=== PATIENT | male | born 1930 | race Caucasian/White ===

== ENCOUNTER 2017-07-28 18:49 | Inpatient (IN) ==
[2017-07-28 19:18] LABS: Hematocrit 35.9 VOL% (42.0-52.0); Hemoglobin 12.3 GM/DL (14.0-18.0); Red Blood Count 3.98 MC/CUMM (3.8-5.5); White Blood Count 17.4 T/CUMM (4-12)
[2017-07-28 19:19] LABS: Basophils % 0.1 % (0.0-0.8); Eosinophils % 0.1 % (0.00-10.9); Immature Granulocytes % 0.5 %; Immature Granulocytes Absolute 0.09 #; Lymphocytes # 0.5 10*3/uL (1.4-4.0); Lymphocytes % 3.1 % (21.2-54.2); Mean Corpuscular HGB Conc 34.3 GM/DL (32-36); Mean Corpuscular Hemoglobin 31 PG (27-34); Mean Corpuscular Volume 90.2 FL (87-102); Mean Platelet Volume 10.2 FL (9.6-12.0); Monocytes # 1.1 10*3/uL (0.11-0.8); Monocytes % 6.5 % (1.7-12.7); Neutrophils # 15.6 10*3/uL (1.4-7.4); Neutrophils % 89.7 % (38.7-73.9); Platelet Count 240 T/CUMM (130-400); Red Cell Distribution Width 13.4 % (9.3-17.3)
[2017-07-28 19:39] LABS: Calcium 8.7 MG/DL (8.5-10.1); Potassium 4.2 MMOL/L (3.5-5.1)
[2017-07-28 19:46] LABS: Lactic Acid 2.5 MMOL/L (0.4-2.0); Troponin I Only 0.051 NG/ML (0.00-0.045)
[2017-07-28 20:17] LABS: Band Neutrophils 2 % (0-10); Lymphocytes 1 % (20-55); Myelocytes 1 %; Segmented Neutrophils 95 % (50-85); Total Cells Counted 100
[2017-07-28 20:18] LABS: Platelet Estimate Normal
[2017-07-28] MEDS ORDERED: fentaNYL 100 MCG/2 ML VIAL IV STA (20:36)
[2017-07-28] MEDS ORDERED: fentaNYL 100 MCG/2 ML VIAL ONE (20:54)
[2017-07-28] MEDS ORDERED: SODIUM CHLORIDE 0.9% 500 ML IV ONE (23:56)
[2017-07-28] MEDS ORDERED: DIPHTHERIA/TETANUS ADULT VACCINE 0.5 ML VIAL IM ONE (23:56)
[2017-07-28] MEDS ORDERED: GLUCAGON 1 MG VIAL IM PRN (23:56)
[2017-07-28] MEDS ORDERED: ONDANSETRON 4 MG/2 ML VIAL IV PRN (23:56)
[2017-07-28] MEDS ORDERED: DEXTROSE 50% 25 GM/50 ML VIAL IV PRN (23:56)
[2017-07-29] MEDS ORDERED: DIPHTHERIA/TETANUS ADULT VACCINE 0.5 ML VIAL IM ONE (00:30)
[2017-07-29] MEDS: SODIUM CHLORIDE 0.9% 1,000 ML IV SCH ×2 (02:20→16:30)
[2017-07-29 03:09] LABS: Hematocrit 33.6 VOL% (42.0-52.0); Hemoglobin 11.2 GM/DL (14.0-18.0); Red Blood Count 3.69 MC/CUMM (3.8-5.5); White Blood Count 13.6 T/CUMM (4-12)
[2017-07-29 03:10] LABS: Basophils % 0.1 % (0.0-0.8); Eosinophils % 0.1 % (0.00-10.9); Immature Granulocytes % 0.5 %; Immature Granulocytes Absolute 0.07 #; Lymphocytes # 1.4 10*3/uL (1.4-4.0); Lymphocytes % 10.2 % (21.2-54.2); Mean Corpuscular HGB Conc 33.3 GM/DL (32-36); Mean Corpuscular Hemoglobin 30 PG (27-34); Mean Corpuscular Volume 91.1 FL (87-102); Mean Platelet Volume 10.9 FL (9.6-12.0); Monocytes # 1.5 10*3/uL (0.11-0.8); Monocytes % 10.8 % (1.7-12.7); Neutrophils # 10.6 10*3/uL (1.4-7.4); Neutrophils % 78.3 % (38.7-73.9); Platelet Count 230 T/CUMM (130-400); Red Cell Distribution Width 13.6 % (9.3-17.3)
[2017-07-29 03:23] LABS: INR 1.1; PT Patient Result 11.4 SECS; Partial Thromboplastin Time 22.5 SECS (0-40)
[2017-07-29 03:34] LABS: Lactic Acid 1.3 MMOL/L (0.4-2.0)
[2017-07-29 03:46] LABS: Calcium 8.4 MG/DL (8.5-10.1); Magnesium 2.4 MG/DL (1.8-2.4); Osmolality,Calculated 276.5 MOS/KG (273-304); Potassium 4.4 MMOL/L (3.5-5.1); Risk Ratio 1.92; VLDL CHOLESTEROL 8.4 MG/DL
[2017-07-29 06:27] LABS: Burr Cells Slight; Giant Platelets Few; Hypochromasia 1+; Ovalocytes Slight; Platelet Estimate Adequate
[2017-07-29] MEDS: INSULIN LISPRO 100 UNIT/ML SUBCUT SCH ×4 (09:32→21:33)
[2017-07-29] MEDS: fentaNYL 100 MCG/2 ML VIAL IV PRN ×4 (09:45→20:50)
[2017-07-29] MEDS ORDERED: GLUCAGON 1 MG VIAL IM PRN (15:19)
[2017-07-29] MEDS ORDERED: DEXTROSE 50% 25 GM/50 ML VIAL IV PRN (15:19)
[2017-07-29] MEDS: CARVEDILOL 3.125 MG TABLET PO SCH (16:29)
[2017-07-29 17:00] LABS: CKMB % 0.5 %
[2017-07-29 17:03] LABS: Troponin I Only 0.074 NG/ML (0.00-0.045)
[2017-07-29 22:56] LABS: CKMB % 0.4 %
[2017-07-29 22:57] LABS: Troponin I Only 0.062 NG/ML (0.00-0.045)
[2017-07-30] MEDS: CARVEDILOL 3.125 MG TABLET PO SCH ×5 (00:15→22:01)
[2017-07-30] MEDS: fentaNYL 100 MCG/2 ML VIAL IV PRN (01:50)
[2017-07-30] MEDS ORDERED: HALOPERIDOL 5 MG/ML AMP IV ONE ×2 (02:54→07:15)
[2017-07-30] MEDS: SODIUM CHLORIDE 0.9% 1,000 ML IV SCH (04:40)
[2017-07-30 07:05] LABS: CKMB % 0.3 %
[2017-07-30 07:29] LABS: Troponin I Only 0.055 NG/ML (0.00-0.045)
[2017-07-30] MEDS ORDERED: diphenhydrAMINE 50 MG/1 ML VIAL ONE (10:17)
[2017-07-30] MEDS ORDERED: diphenhydrAMINE 50 MG/1 ML VIAL IV ONE (10:32)
[2017-07-30] MEDS: INSULIN LISPRO 100 UNIT/ML SUBCUT SCH ×4 (10:40→21:52)
[2017-07-30 10:48] LABS: CKMB % 0.2 %
[2017-07-30 11:06] LABS: Troponin I Only 0.052 NG/ML (0.00-0.045)
[2017-07-30] MEDS ORDERED: ceFAZolin 1,000 MG VIAL ONE ×2 (12:20→12:36)
[2017-07-30] MEDS ORDERED: ceFAZolin 2,000 MG in PREMIX 1 EACH IV ONE (13:48)
[2017-07-30] MEDS ORDERED: PROPOFOL 200 MG/20 ML VIAL IV ONE (21:11)
[2017-07-30] MEDS ORDERED: ePHEDrine 50 MG/ML AMP ONE (21:12)
[2017-07-30] MEDS ORDERED: MIDAZOLAM 2 MG/2 ML VIAL ONE (21:12)
[2017-07-30] MEDS ORDERED: fentaNYL 100 MCG/2 ML VIAL ONE (21:12)
[2017-07-30] MEDS ORDERED: ONDANSETRON 4 MG/2 ML VIAL ONE (21:12)
[2017-07-30] MEDS ORDERED: PHENYLEPHRINE DRIP 20 MG/250 ML PREMIX IV ONE (21:12)
[2017-07-30] MEDS ORDERED: ETOMIDATE 20 MG/10 ML VIAL IV ONE (21:12)
[2017-07-30] MEDS ORDERED: LACTATED RINGERS 1,000 ML IV ONE (21:13)
[2017-07-30] MEDS ORDERED: SEVOFLURANE 1 UNIT/15 MINUTE INH ONE (21:15)
[2017-07-31] MEDS: KETOROLAC 15 MG/1 ML VIAL IV PRN ×2 (00:13→09:53)
[2017-07-31] MEDS: CARVEDILOL 3.125 MG TABLET PO SCH ×4 (04:59→22:13)
[2017-07-31 05:24] LABS: Basophils % 0.1 % (0.0-0.8); Eosinophils # 0.1 10*3/uL (0.0-0.87); Eosinophils % 0.4 % (0.00-10.9); Hematocrit 28.3 VOL% (42.0-52.0); Hemoglobin 9.7 GM/DL (14.0-18.0); Immature Granulocytes % 0.5 %; Immature Granulocytes Absolute 0.06 #; Lymphocytes # 1.2 10*3/uL (1.4-4.0); Lymphocytes % 9.6 % (21.2-54.2); Mean Corpuscular HGB Conc 34.3 GM/DL (32-36); Mean Corpuscular Hemoglobin 32 PG (27-34); Mean Corpuscular Volume 91.9 FL (87-102); Mean Platelet Volume 11.3 FL (9.6-12.0); Monocytes # 1.7 10*3/uL (0.11-0.8); Monocytes % 14.3 % (1.7-12.7); Neutrophils # 9.1 10*3/uL (1.4-7.4); Neutrophils % 75.1 % (38.7-73.9); Platelet Count 181 T/CUMM (130-400); Red Blood Count 3.08 MC/CUMM (3.8-5.5); Red Cell Distribution Width 13.5 % (9.3-17.3); White Blood Count 12.2 T/CUMM (4-12)
[2017-07-31 06:02] LABS: Calcium 8.1 MG/DL (8.5-10.1); Osmolality,Calculated 273.8 MOS/KG (273-304)
[2017-07-31] MEDS: INSULIN LISPRO 100 UNIT/ML SUBCUT SCH ×4 (07:32→21:26)
[2017-07-31 11:35] LABS: Apearance,Urine Slightly Hazy (Clear); Bacteria,Urine Occasional /HPF (Few); Bilirubin,Urine Negative (Negative); Blood, Urine Negative (Negative); Glucose,Urine (UA) 50 mg/dL (Negative); Hyaline Casts,Urine 1 /LPF (0-3); Ketones,Urine 20 mg/dL (Negative); Mucus,Urine Few /LPF (Occasional); Nitrite,Urine Negative (Negative); Protein,Urine 30 MG/DL; RBC,Urine 1 /HPF (0-4); Urine Color Amber (Yellow); Urine Specific Gravity 1.028 (1.001-1.035); WBC,Urine 6 /HPF (0-6)
[2017-07-31] MEDS ORDERED: KETOROLAC 10 MG TABLET PO PRN (15:49)
[2017-08-01] MEDS: CARVEDILOL 3.125 MG TABLET PO SCH ×2 (05:59→09:51)
[2017-08-01] MEDS: INSULIN LISPRO 100 UNIT/ML SUBCUT SCH ×2 (07:44→11:08)
[2017-08-01] MEDS ORDERED: MAGNESIUM HYDROXIDE SUSP 30 ML UDCUP PO PRN (07:46)
[2017-08-01] MEDS ORDERED: BISACODYL 10 MG SUPP RECTAL PRN (07:47)
[2017-08-01 11:20] VITALS: BP 108/64
== END 2017-08-01 15:46 | DRG 493 ==
LOC: EDUNIT# → EDBD → N.ED 18:49 → N.EDINP 22:08 → N.TELES 22:44 → N.3E 07-30 16:20
PROVIDERS: ADMIT Internal Medicine; ATTEND Internal Medicine

== ENCOUNTER 2018-03-05 10:39 | Observation (INO) ==
[2018-03-05 11:21] LABS: Basophils % 0.3 % (0.0-0.8); Eosinophils # 0.2 10*3/uL (0.0-0.87); Eosinophils % 2.9 % (0.00-10.9); Hematocrit 31.5 VOL% (42.0-52.0); Hemoglobin 10.2 GM/DL (14.0-18.0); Immature Granulocytes % 0.3 %; Immature Granulocytes Absolute 0.02 #; Lymphocytes # 1.4 10*3/uL (1.4-4.0); Lymphocytes % 17.9 % (21.2-54.2); Mean Corpuscular HGB Conc 32.4 GM/DL (32-36); Mean Corpuscular Hemoglobin 26 PG (27-34); Mean Corpuscular Volume 80.6 FL (87-102); Mean Platelet Volume 9.9 FL (9.6-12.0); Monocytes # 0.7 10*3/uL (0.11-0.8); Monocytes % 9.6 % (1.7-12.7); Neutrophils # 5.3 10*3/uL (1.4-7.4); Platelet Count 296 T/CUMM (130-400); Red Blood Count 3.91 MC/CUMM (3.8-5.5); Red Cell Distribution Width 15.1 % (9.3-17.3); White Blood Count 7.7 T/CUMM (4-12)
[2018-03-05 11:33] LABS: PT Patient Result 10.6 SECS; Partial Thromboplastin Time 25.4 SECS (0-40)
[2018-03-05 11:59] LABS: Alanine Aminotransferase 22 U/L (16-61); Albumin 3.3 G/DL (3.4-5.0); Alkaline Phosphatase 119 U/L (45-117); Aspartate Amino Transferase 20 U/L (0-37); Bilirubin,Total < 0.39 MG/DL (0.2-1.0); Blood Urea Nitrogen 17 MG/DL (7-18); Calcium 8.9 MG/DL (8.5-10.1); Glucose 98 MG/DL (74-106); Osmolality,Calculated 276.7 MOS/KG (273-304); Potassium 4.1 MMOL/L (3.5-5.1); Sodium 138 MMOL/L (136-145); Total Protein 7.5 G/DL (6.4-8.3); Troponin I Only < 0.015 NG/ML (0.00-0.045)
[2018-03-05] MEDS ORDERED: SODIUM CHLORIDE 0.9% 1,000 ML IV SCH (15:30)
[2018-03-05] MEDS ORDERED: DOCUSATE SODIUM 100 MG CAPSULE PO PRN (15:30)
[2018-03-05] MEDS ORDERED: PANTOPRAZOLE 40 MG TABLET PO SCH (16:00)
[2018-03-05 16:16] LABS: Amorphous Crystals,Urine Occasional /HPF (Few); Apearance,Urine Slightly Hazy (Clear); Bacteria,Urine Moderate /HPF (Few); Bilirubin,Urine Negative (Negative); Blood, Urine Negative (Negative); Glucose,Urine (UA) Negative (Negative); Ketones,Urine Negative (Negative); Mucus,Urine Occasional /LPF (Occasional); Nitrite,Urine Negative (Negative); Protein,Urine Negative; RBC,Urine 11 /HPF (0-4); Squamous Epithelial Cell,Urine Occasional /HPF (0-10); Urine Color Straw (Yellow); Urine Specific Gravity 1.006 (1.001-1.035); Urine Urobilinogen < 2.0 EU/DL (0.2-1.0); WBC,Urine 47 /HPF (0-6)
[2018-03-05 16:37] LABS: % Iron Saturation 5.6 % (18-50); Ferritin 14.3 ng/ml (26-388)
[2018-03-05 16:56] LABS: Troponin I Only < 0.015 NG/ML (0.00-0.045)
[2018-03-05] MEDS ORDERED: cefTRIAXone 1,000 MG in SYRINGE 1 EACH IV SCH (18:00)
[2018-03-05] MEDS: PANTOPRAZOLE 40 MG TABLET PO SCH (18:26)
[2018-03-05] MEDS ORDERED: QUEtiapine 25 MG TABLET PO SCH (21:00)
[2018-03-05] MEDS ORDERED: MONTELUKAST 10 MG TABLET PO SCH (21:00)
[2018-03-05] MEDS ORDERED: ZALEPLON 5 MG CAPSULE PO SCH (21:00)
[2018-03-05] MEDS ORDERED: ATORVASTATIN 10 MG TABLET PO SCH (21:00)
[2018-03-05] MEDS ORDERED: CETIRIZINE 10 MG TABLET PO SCH (21:00)
[2018-03-05] MEDS ORDERED: GABAPENTIN 100 MG CAPSULE PO SCH (21:00)
[2018-03-05] MEDS: NAPROXEN 250 MG TABLET PO SCH (22:29)
[2018-03-05] MEDS: MEMANTINE 10 MG TABLET PO SCH (22:30)
[2018-03-06 05:49] LABS: Basophils % 0.2 % (0.0-0.8); Eosinophils # 0.3 10*3/uL (0.0-0.87); Eosinophils % 3.1 % (0.00-10.9); Hemoglobin 9.1 GM/DL (14.0-18.0); Immature Granulocytes % 0.4 %; Immature Granulocytes Absolute 0.03 #; Lymphocytes # 1.6 10*3/uL (1.4-4.0); Lymphocytes % 18.6 % (21.2-54.2); Mean Corpuscular HGB Conc 31.4 GM/DL (32-36); Mean Corpuscular Hemoglobin 26 PG (27-34); Mean Corpuscular Volume 83.8 FL (87-102); Monocytes # 0.9 10*3/uL (0.11-0.8); Monocytes % 10.9 % (1.7-12.7); Neutrophils # 5.6 10*3/uL (1.4-7.4); Neutrophils % 66.8 % (38.7-73.9); Platelet Count 269 T/CUMM (130-400); Red Blood Count 3.46 MC/CUMM (3.8-5.5); Red Cell Distribution Width 15.1 % (9.3-17.3); White Blood Count 8.3 T/CUMM (4-12)
[2018-03-06 06:28] LABS: Albumin 2.9 G/DL (3.4-5.0); Bilirubin,Total 0.4 MG/DL (0.2-1.0); Calcium 8.5 MG/DL (8.5-10.1); Osmolality,Calculated 279.4 MOS/KG (273-304); Potassium 4.1 MMOL/L (3.5-5.1); Total Protein 6.7 G/DL (6.4-8.3)
[2018-03-06] MEDS ORDERED: ASCORBIC ACID 500 MG TABLET PO SCH (09:00)
[2018-03-06] MEDS ORDERED: CHOLECALCIFEROL 1,000 UNIT TABLET PO SCH (09:00)
[2018-03-06] MEDS ORDERED: MULTIVITAMIN (CENTRUM) TABLET PO SCH (09:00)
[2018-03-06] MEDS ORDERED: CLOPIDOGREL 75 MG TABLET PO SCH (09:00)
[2018-03-06] MEDS ORDERED: SERTRALINE 50 MG TABLET PO SCH (09:00)
[2018-03-06] MEDS: NAPROXEN 250 MG TABLET PO SCH (09:50)
[2018-03-06] MEDS: PANTOPRAZOLE 40 MG TABLET PO SCH (09:50)
[2018-03-06] MEDS: MEMANTINE 10 MG TABLET PO SCH (09:51)
[2018-03-06 11:51] VITALS: BP 124/62
[2018-03-06] MEDS ORDERED: ALBUTEROL/IPRATROPIUM 3 ML NEB RESP TX SCH (13:00)
== END 2018-03-06 14:30 | disposition home or self-care (01) ==
LOC: N.ED 10:39 → N.EDINP 10:39 → N.2E 16:27
PROVIDERS: ADMIT Internal Medicine; ATTEND Internal Medicine

== ENCOUNTER 2019-10-27 13:35 | Inpatient (IN) ==
[2019-10-27 14:58] LABS: Basophils % 0.1 % (0.0-0.8); Eosinophils % 0.2 % (0.00-10.9); Hematocrit 43.5 VOL% (42.0-52.0); Hemoglobin 14.2 GM/DL (14.0-18.0); Immature Granulocytes % 0.5 %; Immature Granulocytes Absolute 0.07 #; Lymphocytes # 0.9 10*3/uL (1.4-4.0); Lymphocytes % 5.7 % (21.2-54.2); Mean Corpuscular HGB Conc 32.6 GM/DL (32-36); Mean Corpuscular Volume 93.5 FL (87-102); Mean Platelet Volume 11.2 FL (9.6-12.0); Monocytes % 6.8 % (1.7-12.7); Neutrophils % 86.7 % (38.7-73.9); Platelet Count 173 T/CUMM (130-400); Red Blood Count 4.65 MC/CUMM (3.8-5.5); Red Cell Distribution Width 15.5 % (9.3-17.3); White Blood Count 14.8 T/CUMM (4-12)
[2019-10-27 15:18] LABS: Osmolality,Calculated 288.5 MOS/KG (273-304)
[2019-10-27] MEDS ORDERED: ALBUTEROL/IPRATROPIUM 3 ML NEB RESP TX PRN (15:56)
[2019-10-27] MEDS ORDERED: ONDANSETRON 4 MG/2 ML VIAL IV PRN (15:56)
[2019-10-27] MEDS ORDERED: POLYVINYL ALCOHOL 1.4% OPH SOLN 15 ML BOTTLE BOTH EYES PRN (15:59)
[2019-10-27] MEDS: traMADol 50 MG TABLET PO PRN (17:25)
[2019-10-27 19:25] LABS: Hematocrit 42.4 VOL% (42.0-52.0); Hemoglobin 13.7 GM/DL (14.0-18.0)
[2019-10-27 19:53] LABS: Apearance,Urine Slightly Hazy (Clear); Bacteria,Urine Many /HPF (Few); Bilirubin,Urine Negative (Negative); Blood, Urine Moderate mg/dL (Negative); Glucose,Urine (UA) Negative (Negative); Hyaline Casts,Urine 33 /LPF (0-3); Ketones,Urine 5 mg/dL (Negative); Mucus,Urine Few /LPF (Occasional); Nitrite,Urine Negative (Negative); Protein,Urine 30 MG/DL; RBC,Urine 8 /HPF (0-4); Squamous Epithelial Cell,Urine Occasional /HPF (0-10); Urine Color Amber (Yellow); WBC,Urine 44 /HPF (0-6)
[2019-10-27] MEDS: MEMANTINE 10 MG TABLET PO SCH (20:44)
[2019-10-27] MEDS: ATORVASTATIN 10 MG TABLET PO SCH (20:44)
[2019-10-27] MEDS: ACETAMINOPHEN 325 MG TABLET PO PRN (20:45)
[2019-10-28] MEDS: traMADol 50 MG TABLET PO PRN ×2 (01:43→12:15)
[2019-10-28 03:46] LABS: Basophils % 0.2 % (0.0-0.8); Eosinophils # 0.3 10*3/uL (0.0-0.87); Eosinophils % 1.8 % (0.00-10.9); Hematocrit 40.7 VOL% (42.0-52.0); Hemoglobin 13.2 GM/DL (14.0-18.0); Immature Granulocytes % 0.5 %; Immature Granulocytes Absolute 0.08 #; Lymphocytes % 6.7 % (21.2-54.2); Mean Corpuscular HGB Conc 32.4 GM/DL (32-36); Mean Corpuscular Volume 93.1 FL (87-102); Mean Platelet Volume 11.3 FL (9.6-12.0); Neutrophils % 79.8 % (38.7-73.9); Platelet Count 146 T/CUMM (130-400); Red Blood Count 4.37 MC/CUMM (3.8-5.5); Red Cell Distribution Width 15.6 % (9.3-17.3); White Blood Count 15.4 T/CUMM (4-12)
[2019-10-28 04:31] LABS: Osmolality,Calculated 289.4 MOS/KG (273-304); Risk Ratio 3.1; Thyroid Stimulating Hormone 1.27 uIU/ml (0.358-3.74); VLDL CHOLESTEROL 23.6 MG/DL
[2019-10-28] MEDS: ACETAMINOPHEN 325 MG TABLET PO PRN (06:33)
[2019-10-28] MEDS ORDERED: ASPIRIN EC 81 MG TABLET PO SCH (12:00)
[2019-10-28] MEDS: LACTATED RINGERS 1,000 ML IV SCH ×2 (12:40→18:07)
[2019-10-28] MEDS ORDERED: DEXTROSE 50% 25 GM/50 ML VIAL IV PRN (15:10)
[2019-10-28] MEDS ORDERED: GLUCAGON 1 MG VIAL IM PRN (15:10)
[2019-10-28] MEDS: cefTRIAXone 1,000 MG in SYRINGE 1 EACH IV SCH (16:20)
[2019-10-28] MEDS: MULTIVITAMIN (CENTRUM) TABLET PO SCH (17:59)
[2019-10-28] MEDS: FERROUS SULFATE 325 MG TABLET PO SCH (17:59)
[2019-10-28] MEDS: PANTOPRAZOLE 40 MG TABLET PO SCH (18:00)
[2019-10-28] MEDS: ASCORBIC ACID 500 MG TABLET PO SCH (18:00)
[2019-10-28] MEDS: MEMANTINE 10 MG TABLET PO SCH ×2 (18:00→21:09)
[2019-10-28] MEDS: CYANOCOBALAMIN 500 MCG TABLET PO SCH (18:00)
[2019-10-28] MEDS: SERTRALINE 50 MG TABLET PO SCH (18:00)
[2019-10-28] MEDS: CRANBERRY PLUS VITAMIN C PO SCH (18:01)
[2019-10-28] MEDS: INSULIN REGULAR 100 UNIT/ML SUBCUT SCH ×2 (18:02→21:09)
[2019-10-28] MEDS: ATORVASTATIN 10 MG TABLET PO SCH (21:09)
[2019-10-29] MEDS: traMADol 50 MG TABLET PO PRN ×2 (04:25→19:10)
[2019-10-29] MEDS: LACTATED RINGERS 1,000 ML IV SCH ×3 (04:35→18:36)
[2019-10-29 06:31] LABS: Basophils % 0.1 % (0.0-0.8); Eosinophils # 0.2 10*3/uL (0.0-0.87); Eosinophils % 1.1 % (0.00-10.9); Hematocrit 37.8 VOL% (42.0-52.0); Hemoglobin 12.3 GM/DL (14.0-18.0); Immature Granulocytes % 0.6 %; Immature Granulocytes Absolute 0.09 #; Lymphocytes # 1.5 10*3/uL (1.4-4.0); Lymphocytes % 10.5 % (21.2-54.2); Mean Corpuscular HGB Conc 32.5 GM/DL (32-36); Mean Corpuscular Volume 95.2 FL (87-102); Mean Platelet Volume 11.8 FL (9.6-12.0); Monocytes % 10.6 % (1.7-12.7); Neutrophils % 77.1 % (38.7-73.9); Platelet Count 137 T/CUMM (130-400); Red Blood Count 3.97 MC/CUMM (3.8-5.5); Red Cell Distribution Width 16.3 % (9.3-17.3)
[2019-10-29 06:51] LABS: Calcium 9.3 MG/DL (8.5-10.1); Osmolality,Calculated 294.4 MOS/KG (273-304)
[2019-10-29] MEDS: MULTIVITAMIN (CENTRUM) TABLET PO SCH (09:10)
[2019-10-29] MEDS: FERROUS SULFATE 325 MG TABLET PO SCH (09:10)
[2019-10-29] MEDS: CYANOCOBALAMIN 500 MCG TABLET PO SCH (09:11)
[2019-10-29] MEDS: PANTOPRAZOLE 40 MG TABLET PO SCH (09:11)
[2019-10-29] MEDS: MEMANTINE 10 MG TABLET PO SCH ×2 (09:11→20:36)
[2019-10-29] MEDS: ASCORBIC ACID 500 MG TABLET PO SCH (09:12)
[2019-10-29] MEDS: SERTRALINE 50 MG TABLET PO SCH (09:12)
[2019-10-29] MEDS: CRANBERRY PLUS VITAMIN C PO SCH (09:28)
[2019-10-29] MEDS: INSULIN REGULAR 100 UNIT/ML SUBCUT SCH ×4 (09:36→20:35)
[2019-10-29] MEDS: ACETAMINOPHEN 325 MG TABLET PO PRN (11:00)
[2019-10-29] MEDS: cefTRIAXone 1,000 MG in SYRINGE 1 EACH IV SCH (16:30)
[2019-10-29] MEDS: ATORVASTATIN 10 MG TABLET PO SCH (20:36)
[2019-10-30] MEDS: ACETAMINOPHEN 325 MG TABLET PO PRN (00:57)
[2019-10-30] MEDS: traMADol 50 MG TABLET PO PRN ×2 (04:54→21:12)
[2019-10-30 04:59] LABS: Basophils % 0.2 % (0.0-0.8); Eosinophils # 0.2 10*3/uL (0.0-0.87); Eosinophils % 2.1 % (0.00-10.9); Immature Granulocytes % 0.7 %; Immature Granulocytes Absolute 0.08 #; Lymphocytes # 1.2 10*3/uL (1.4-4.0); Lymphocytes % 10.6 % (21.2-54.2); Mean Corpuscular HGB Conc 32.4 GM/DL (32-36); Mean Corpuscular Volume 96.3 FL (87-102); Mean Platelet Volume 12.3 FL (9.6-12.0); Monocytes % 10.7 % (1.7-12.7); Neutrophils % 75.7 % (38.7-73.9); Platelet Count 119 T/CUMM (130-400); Red Blood Count 3.53 MC/CUMM (3.8-5.5); Red Cell Distribution Width 16.5 % (9.3-17.3); White Blood Count 11.6 T/CUMM (4-12)
[2019-10-30 05:22] LABS: Calcium 9.1 MG/DL (8.5-10.1); Osmolality,Calculated 299.7 MOS/KG (273-304)
[2019-10-30] MEDS: INSULIN REGULAR 100 UNIT/ML SUBCUT SCH ×4 (10:11→21:13)
[2019-10-30] MEDS: MEMANTINE 10 MG TABLET PO SCH ×2 (10:12→21:13)
[2019-10-30] MEDS: FERROUS SULFATE 325 MG TABLET PO SCH (10:12)
[2019-10-30] MEDS: CRANBERRY PLUS VITAMIN C PO SCH (10:12)
[2019-10-30] MEDS: MULTIVITAMIN (CENTRUM) TABLET PO SCH (10:12)
[2019-10-30] MEDS: CYANOCOBALAMIN 500 MCG TABLET PO SCH (10:13)
[2019-10-30] MEDS: SERTRALINE 50 MG TABLET PO SCH (10:13)
[2019-10-30] MEDS: PANTOPRAZOLE 40 MG TABLET PO SCH (10:13)
[2019-10-30] MEDS: ASCORBIC ACID 500 MG TABLET PO SCH (10:13)
[2019-10-30] MEDS: LACTATED RINGERS 1,000 ML IV SCH (10:14)
[2019-10-30] MEDS: cefTRIAXone 1,000 MG in SYRINGE 1 EACH IV SCH (14:02)
[2019-10-30] MEDS ORDERED: ceFAZolin 1,000 MG VIAL ONE ×2 (15:52→15:54)
[2019-10-30] MEDS ORDERED: VANCOMYCIN 1,000 MG VIAL ONE (15:52)
[2019-10-30] MEDS ORDERED: TRANEXAMIC ACID 1,000 MG/10 ML VIAL ONE (15:52)
[2019-10-30] MEDS ORDERED: propofoL 200 MG/20 ML VIAL IV ONE (17:20)
[2019-10-30] MEDS ORDERED: ETOMIDATE 40 MG/20 ML VIAL IV ONE (17:20)
[2019-10-30] MEDS ORDERED: LIDOCAINE 2% 5 ML VIAL ONE (17:20)
[2019-10-30] MEDS ORDERED: SEVOFLURANE 1 UNIT/15 MINUTE INH ONE (17:20)
[2019-10-30] MEDS ORDERED: ROCURONIUM 100 MG/10 ML VIAL IV ONE (17:21)
[2019-10-30] MEDS ORDERED: DEXAMETHASONE 4 MG/1 ML VIAL ONE (17:22)
[2019-10-30] MEDS ORDERED: ONDANSETRON 4 MG/2 ML VIAL ONE (17:22)
[2019-10-30] MEDS ORDERED: ePHEDrine 50 MG/ML AMP ONE (17:22)
[2019-10-30] MEDS ORDERED: PHENYLEPHRINE DRIP 20 MG/250 ML PREMIX IV ONE (17:22)
[2019-10-30] MEDS ORDERED: GLYCOPYRROLATE 0.4 MG/2 ML VIAL ONE (17:22)
[2019-10-30] MEDS ORDERED: PHENYLEPHRINE 1 MG/10 ML SYRINGE IV ONE (17:23)
[2019-10-30] MEDS ORDERED: SODIUM CHLORIDE 0.9% 250 ML IV ONE (17:23)
[2019-10-30] MEDS ORDERED: SODIUM CHLORIDE 0.9% 500 ML IV ONE (17:23)
[2019-10-30] MEDS ORDERED: NEOSTIGMINE 10 MG/10 ML VIAL ONE (17:23)
[2019-10-30] MEDS ORDERED: fentaNYL 100 MCG/2 ML VIAL ONE (17:26)
[2019-10-30] MEDS: ATORVASTATIN 10 MG TABLET PO SCH (21:13)
[2019-10-31] MEDS: ACETAMINOPHEN 325 MG TABLET PO PRN (02:48)
[2019-10-31 05:53] LABS: Basophils % 0.1 % (0.0-0.8); Hematocrit 33.7 VOL% (42.0-52.0); Hemoglobin 10.6 GM/DL (14.0-18.0); Immature Granulocytes % 0.7 %; Immature Granulocytes Absolute 0.08 #; Lymphocytes # 0.5 10*3/uL (1.4-4.0); Lymphocytes % 4.4 % (21.2-54.2); Mean Corpuscular HGB Conc 31.5 GM/DL (32-36); Mean Corpuscular Volume 99.4 FL (87-102); Mean Platelet Volume 12.2 FL (9.6-12.0); Monocytes % 9.6 % (1.7-12.7); Neutrophils % 85.2 % (38.7-73.9); Platelet Count 131 T/CUMM (130-400); Red Blood Count 3.39 MC/CUMM (3.8-5.5); Red Cell Distribution Width 15.9 % (9.3-17.3)
[2019-10-31] MEDS: traMADol 50 MG TABLET PO PRN ×2 (06:14→19:33)
[2019-10-31 06:17] LABS: Hypochromasia 1+; Lymphocytes 2 % (20-55); Ovalocytes Slight; Platelet Estimate Normal; Segmented Neutrophils 86 % (50-85); Total Cells Counted 100
[2019-10-31 06:22] LABS: Osmolality,Calculated 301.4 MOS/KG (273-304)
[2019-10-31] MEDS: INSULIN REGULAR 100 UNIT/ML SUBCUT SCH ×4 (08:41→21:37)
[2019-10-31] MEDS: SERTRALINE 50 MG TABLET PO SCH (08:42)
[2019-10-31] MEDS: PANTOPRAZOLE 40 MG TABLET PO SCH (08:43)
[2019-10-31] MEDS: CYANOCOBALAMIN 500 MCG TABLET PO SCH (08:43)
[2019-10-31] MEDS: MEMANTINE 10 MG TABLET PO SCH ×2 (08:43→21:37)
[2019-10-31] MEDS: FERROUS SULFATE 325 MG TABLET PO SCH (08:43)
[2019-10-31] MEDS: ASCORBIC ACID 500 MG TABLET PO SCH (08:43)
[2019-10-31] MEDS: MULTIVITAMIN (CENTRUM) TABLET PO SCH (08:43)
[2019-10-31] MEDS: CRANBERRY PLUS VITAMIN C PO SCH (08:44)
[2019-10-31] MEDS: DEXTROSE 5% NACL 0.45% 1,000 ML IV SCH ×2 (08:52→22:15)
[2019-10-31] MEDS: cefTRIAXone 1,000 MG in SYRINGE 1 EACH IV SCH (15:37)
[2019-10-31] MEDS: ATORVASTATIN 10 MG TABLET PO SCH (21:36)
[2019-11-01] MEDS: INSULIN REGULAR 100 UNIT/ML SUBCUT SCH ×4 (07:08→21:06)
[2019-11-01] MEDS: FERROUS SULFATE 325 MG TABLET PO SCH (09:02)
[2019-11-01] MEDS: MULTIVITAMIN (CENTRUM) TABLET PO SCH (09:02)
[2019-11-01] MEDS: ASPIRIN EC 81 MG TABLET PO SCH (09:02)
[2019-11-01] MEDS: CLOPIDOGREL 75 MG TABLET PO SCH (09:02)
[2019-11-01] MEDS: MEMANTINE 10 MG TABLET PO SCH ×2 (09:02→21:06)
[2019-11-01] MEDS: CRANBERRY PLUS VITAMIN C PO SCH (09:02)
[2019-11-01] MEDS: ASCORBIC ACID 500 MG TABLET PO SCH (09:03)
[2019-11-01] MEDS: SERTRALINE 50 MG TABLET PO SCH (09:03)
[2019-11-01] MEDS: CYANOCOBALAMIN 500 MCG TABLET PO SCH (09:03)
[2019-11-01] MEDS: PANTOPRAZOLE 40 MG TABLET PO SCH (09:03)
[2019-11-01] MEDS: traMADol 50 MG TABLET PO PRN ×2 (09:40→21:09)
[2019-11-01] MEDS: DEXTROSE 5% NACL 0.45% 1,000 ML IV SCH (10:40)
[2019-11-01] MEDS ORDERED: LACTULOSE 20 GM/30 ML UDCUP PO ONE (15:49)
[2019-11-01] MEDS ORDERED: BISACODYL 10 MG SUPP RECTAL ONE (15:50)
[2019-11-01] MEDS: cefTRIAXone 1,000 MG in SYRINGE 1 EACH IV SCH (16:09)
[2019-11-01] MEDS: ATORVASTATIN 10 MG TABLET PO SCH (21:06)
[2019-11-02] MEDS: INSULIN REGULAR 100 UNIT/ML SUBCUT SCH ×4 (08:22→20:30)
[2019-11-02] MEDS: ASPIRIN EC 81 MG TABLET PO SCH (09:10)
[2019-11-02] MEDS: MEMANTINE 10 MG TABLET PO SCH ×2 (09:11→20:30)
[2019-11-02] MEDS: MULTIVITAMIN (CENTRUM) TABLET PO SCH (09:11)
[2019-11-02] MEDS: CLOPIDOGREL 75 MG TABLET PO SCH (09:11)
[2019-11-02] MEDS: FERROUS SULFATE 325 MG TABLET PO SCH (09:11)
[2019-11-02] MEDS: ASCORBIC ACID 500 MG TABLET PO SCH (09:12)
[2019-11-02] MEDS: PANTOPRAZOLE 40 MG TABLET PO SCH (09:12)
[2019-11-02] MEDS: SERTRALINE 50 MG TABLET PO SCH (09:12)
[2019-11-02] MEDS: CYANOCOBALAMIN 500 MCG TABLET PO SCH (09:12)
[2019-11-02] MEDS: CRANBERRY PLUS VITAMIN C PO SCH (09:14)
[2019-11-02] MEDS: ACETAMINOPHEN 325 MG TABLET PO PRN (15:43)
[2019-11-02] MEDS: CEFUROXIME 500 MG TABLET PO SCH (20:30)
[2019-11-02] MEDS: ATORVASTATIN 10 MG TABLET PO SCH (20:30)
[2019-11-02] MEDS: traMADol 50 MG TABLET PO PRN (20:34)
[2019-11-03] MEDS: INSULIN REGULAR 100 UNIT/ML SUBCUT SCH ×2 (07:32→11:55)
[2019-11-03] MEDS: FERROUS SULFATE 325 MG TABLET PO SCH (09:15)
[2019-11-03] MEDS: CEFUROXIME 500 MG TABLET PO SCH (09:15)
[2019-11-03] MEDS: MULTIVITAMIN (CENTRUM) TABLET PO SCH (09:15)
[2019-11-03] MEDS: MEMANTINE 10 MG TABLET PO SCH (09:15)
[2019-11-03] MEDS: ASPIRIN EC 81 MG TABLET PO SCH (09:15)
[2019-11-03] MEDS: CLOPIDOGREL 75 MG TABLET PO SCH (09:16)
[2019-11-03] MEDS: CYANOCOBALAMIN 500 MCG TABLET PO SCH (09:16)
[2019-11-03] MEDS: ASCORBIC ACID 500 MG TABLET PO SCH (09:16)
[2019-11-03] MEDS: SERTRALINE 50 MG TABLET PO SCH (09:16)
[2019-11-03] MEDS: PANTOPRAZOLE 40 MG TABLET PO SCH (09:16)
[2019-11-03] MEDS: CRANBERRY PLUS VITAMIN C PO SCH (09:17)
[2019-11-03 12:52] VITALS: BP 126/85
== END 2019-11-03 12:54 | DRG 470 ==
LOC: EDUNIT# → EDBD → N.ED 13:35 → SUATTDRO 15:53 → N.EDINP 15:53 → N.3E 17:35
PROVIDERS: ADMIT Internal Medicine; ATTEND Family Medicine

== ENCOUNTER 2019-11-10 04:35 | Inpatient (IN) ==
[2019-11-10] MEDS ORDERED: methylPREDNISolone SOD SUC 125 MG/2 ML VIAL IV STA (04:47)
[2019-11-10] MEDS ORDERED: ALBUTEROL/IPRATROPIUM 3 ML NEB RESP TX STA (04:47)
[2019-11-10 05:38] LABS: ABG Base Excess -6.2 MMOL/L (-2.5-2.5); ABG HCO3 19.3 MMOL/L (20-26); ABG Oxygen Saturation 99.5 % (95-100); ABG PCO2 28.2 MM HG (35-48); ABG PH 7.407 (7.35-7.45); ABG TCO2 16.7 MMOL/L (23-27); Allen Test Positive
[2019-11-10 05:40] LABS: Basophils % 0.1 % (0.0-0.8); Eosinophils % 0.1 % (0.00-10.9); Hematocrit 21.4 VOL% (42.0-52.0); Hemoglobin 6.6 GM/DL (14.0-18.0); Immature Granulocytes % 1.7 %; Immature Granulocytes Absolute 0.26 #; Lymphocytes # 0.6 10*3/uL (1.4-4.0); Lymphocytes % 3.9 % (21.2-54.2); Mean Corpuscular HGB Conc 30.8 GM/DL (32-36); Mean Corpuscular Volume 102.4 FL (87-102); Mean Platelet Volume 11.2 FL (9.6-12.0); Monocytes % 5.2 % (1.7-12.7); NRBC # 0.02 10*3/uL; Platelet Count 240 T/CUMM (130-400); Red Blood Count 2.09 MC/CUMM (3.8-5.5); Red Cell Distribution Width 17.5 % (9.3-17.3); White Blood Count 15.2 T/CUMM (4-12)
[2019-11-10 06:06] LABS: Albumin 2.9 G/DL (3.4-5.0); Bilirubin,Total 1.4 MG/DL (0.2-1.0); Calcium 8.4 MG/DL (8.5-10.1); Osmolality,Calculated 306.1 MOS/KG (273-304)
[2019-11-10 06:10] LABS: INR 1.2; PT Patient Result 13.2 SECS (9.6-12.2)
[2019-11-10] MEDS ORDERED: FUROSEMIDE 40 MG/4 ML VIAL IV STA (06:29)
[2019-11-10] MEDS ORDERED: FUROSEMIDE 100 MG/10 ML VIAL ONE (06:30)
[2019-11-10 06:59] LABS: Anisocytosis 1+; Lymphocytes 1 % (20-55); Metamyelocytes 2 %; Ovalocytes 1+; Platelet Estimate Normal; Polychromasia 1+; Segmented Neutrophils 94 % (50-85); Total Cells Counted 100
[2019-11-10] MEDS ORDERED: ONDANSETRON 4 MG/2 ML VIAL IV PRN (07:47)
[2019-11-10] MEDS ORDERED: SODIUM CHLORIDE 0.9% 1,000 ML IV PRN (07:53)
[2019-11-10] MEDS ORDERED: MORPHINE 4 MG/1 ML VIAL IV STA (08:02)
[2019-11-10] MEDS ORDERED: MORPHINE 4 MG/1 ML VIAL ONE (08:03)
[2019-11-10] MEDS ORDERED: SODIUM POLYSTYRENE SULFATE 15 GM/60 ML BOTTLE RECTAL STA (08:56)
[2019-11-10] MEDS ORDERED: POLYVINYL ALCOHOL 1.4% OPH SOLN 15 ML BOTTLE BOTH EYES PRN (08:56)
[2019-11-10] MEDS ORDERED: PANTOPRAZOLE 40 MG VIAL IV STA (08:57)
[2019-11-10] MEDS: MEMANTINE 10 MG TABLET PO SCH ×2 (11:48→21:12)
[2019-11-10] MEDS: FUROSEMIDE 40 MG/4 ML VIAL IV SCH ×2 (11:48→17:01)
[2019-11-10] MEDS ORDERED: LIDOCAINE 2% TOP JELLY 20 ML VIAL INTRAURETH ONE (12:23)
[2019-11-10] MEDS: HEPARIN DRIP 25,000 UNITS/500 ML PREMIX IV SCH (12:34)
[2019-11-10] MEDS: cefTRIAXone 1,000 MG in SYRINGE 1 EACH IV SCH (12:37)
[2019-11-10] MEDS: ALBUTEROL/IPRATROPIUM 3 ML NEB RESP TX SCH ×2 (14:04→19:54)
[2019-11-10] MEDS: DOXYCYCLINE HYCLATE INJ 100 MG in SODIUM CHLORIDE 0.9% 100 ML IV SCH (14:06)
[2019-11-10 14:54] LABS: Apearance,Urine CLEAR (Clear); Bacteria,Urine Occasional /HPF (Few); Bilirubin,Urine Negative (Negative); Blood, Urine Large mg/dL (Negative); Glucose,Urine (UA) Negative (Negative); Hyaline Casts,Urine 4 /LPF (0-3); Ketones,Urine Negative (Negative); Mucus,Urine Occasional /LPF (Occasional); Nitrite,Urine Negative (Negative); Protein,Urine Negative; RBC,Urine 452 /HPF (0-4); Urine Color Straw (Yellow); Urine Specific Gravity 1.006 (1.001-1.035); Urine Urobilinogen < 2.0 EU/DL (0.2-1.0); WBC,Urine 12 /HPF (0-6)
[2019-11-10 15:01] LABS: Calcium 8.7 MG/DL (8.5-10.1)
[2019-11-10] MEDS: PANTOPRAZOLE 40 MG VIAL IV SCH (21:12)
[2019-11-11 00:04] LABS: Hemoglobin 8.6 GM/DL (14.0-18.0)
[2019-11-11] MEDS: ALBUTEROL/IPRATROPIUM 3 ML NEB RESP TX SCH ×4 (01:50→19:56)
[2019-11-11] MEDS: DOXYCYCLINE HYCLATE INJ 100 MG in SODIUM CHLORIDE 0.9% 100 ML IV SCH ×2 (02:21→14:58)
[2019-11-11 05:26] LABS: Basophils % 0.1 % (0.0-0.8); Hematocrit 25.6 VOL% (42.0-52.0); Hemoglobin 8.1 GM/DL (14.0-18.0); Immature Granulocytes % 1.3 %; Immature Granulocytes Absolute 0.16 #; Lymphocytes # 0.4 10*3/uL (1.4-4.0); Lymphocytes % 2.8 % (21.2-54.2); Mean Corpuscular HGB Conc 31.6 GM/DL (32-36); Mean Corpuscular Volume 98.8 FL (87-102); Mean Platelet Volume 10.8 FL (9.6-12.0); Monocytes % 6.9 % (1.7-12.7); Neutrophils % 88.9 % (38.7-73.9); Platelet Count 239 T/CUMM (130-400); Red Blood Count 2.59 MC/CUMM (3.8-5.5); Red Cell Distribution Width 16.6 % (9.3-17.3); White Blood Count 12.7 T/CUMM (4-12)
[2019-11-11 05:50] LABS: Lymphocytes 1 % (20-55); Nucleated Red Blood Cells 1 (0-5); Segmented Neutrophils 93 % (50-85); Total Cells Counted 100
[2019-11-11 05:51] LABS: Hypochromasia 1+; Ovalocytes Slight; Platelet Estimate Adequate
[2019-11-11 05:59] LABS: Albumin 2.7 G/DL (3.4-5.0); Bilirubin,Total 1.4 MG/DL (0.2-1.0); Calcium 8.6 MG/DL (8.5-10.1); Osmolality,Calculated 315.7 MOS/KG (273-304); Total Protein 6.4 G/DL (6.4-8.3)
[2019-11-11] MEDS: PANTOPRAZOLE 40 MG VIAL IV SCH ×2 (09:27→21:50)
[2019-11-11] MEDS: cefTRIAXone 1,000 MG in SYRINGE 1 EACH IV SCH (09:30)
[2019-11-11] MEDS: MEMANTINE 10 MG TABLET PO SCH ×2 (09:37→21:50)
[2019-11-11] MEDS: HEPARIN DRIP 25,000 UNITS/500 ML PREMIX IV SCH (09:51)
[2019-11-11] MEDS ORDERED: POTASSIUM CHLORIDE 20 MEQ TABLET PO ONE (10:22)
[2019-11-11] MEDS: oxyCODONE/ACETAMINOPHEN 5-325 MG TABLET PO PRN (15:53)
[2019-11-11] MEDS: APIXABAN 5 MG TABLET PO SCH (21:50)
[2019-11-12] MEDS: ALBUTEROL/IPRATROPIUM 3 ML NEB RESP TX SCH ×4 (00:45→19:30)
[2019-11-12] MEDS: DOXYCYCLINE HYCLATE INJ 100 MG in SODIUM CHLORIDE 0.9% 100 ML IV SCH (02:47)
[2019-11-12 05:34] LABS: Basophils % 0.1 % (0.0-0.8); Eosinophils % 0.3 % (0.00-10.9); Hematocrit 29.2 VOL% (42.0-52.0); Hemoglobin 8.9 GM/DL (14.0-18.0); Immature Granulocytes % 0.9 %; Lymphocytes # 0.7 10*3/uL (1.4-4.0); Lymphocytes % 5.8 % (21.2-54.2); Mean Corpuscular HGB Conc 30.5 GM/DL (32-36); Mean Corpuscular Volume 100.7 FL (87-102); Mean Platelet Volume 10.6 FL (9.6-12.0); Monocytes % 8.5 % (1.7-12.7); Neutrophils % 84.4 % (38.7-73.9); Platelet Count 273 T/CUMM (130-400); Red Cell Distribution Width 18.6 % (9.3-17.3); White Blood Count 11.3 T/CUMM (4-12)
[2019-11-12 06:02] LABS: Osmolality,Calculated 312.7 MOS/KG (273-304)
[2019-11-12] MEDS: SODIUM CHLORIDE 0.45% 1,000 ML IV SCH ×2 (10:00→20:48)
[2019-11-12] MEDS: PANTOPRAZOLE 40 MG VIAL IV SCH ×2 (10:00→20:45)
[2019-11-12] MEDS: cefTRIAXone 1,000 MG in SYRINGE 1 EACH IV SCH (10:02)
[2019-11-12] MEDS: APIXABAN 5 MG TABLET PO SCH ×2 (10:03→20:48)
[2019-11-12] MEDS: MEMANTINE 10 MG TABLET PO SCH ×2 (10:04→20:48)
[2019-11-12] MEDS: POTASSIUM CHLORIDE 20 MEQ TABLET PO SCH ×3 (10:04→16:34)
[2019-11-12] MEDS: MORPHINE 4 MG/1 ML VIAL IV PRN (20:53)
[2019-11-13] MEDS: ALBUTEROL/IPRATROPIUM 3 ML NEB RESP TX SCH ×4 (00:44→20:58)
[2019-11-13] MEDS: MORPHINE 4 MG/1 ML VIAL IV PRN ×2 (03:15→22:51)
[2019-11-13 05:51] LABS: Basophils % 0.1 % (0.0-0.8); Eosinophils # 0.2 10*3/uL (0.0-0.87); Eosinophils % 1.4 % (0.00-10.9); Hematocrit 31.5 VOL% (42.0-52.0); Hemoglobin 9.2 GM/DL (14.0-18.0); Immature Granulocytes Absolute 0.11 #; Lymphocytes # 0.9 10*3/uL (1.4-4.0); Lymphocytes % 7.4 % (21.2-54.2); Mean Corpuscular HGB Conc 29.2 GM/DL (32-36); Mean Corpuscular Volume 105.7 FL (87-102); Mean Platelet Volume 9.6 FL (9.6-12.0); Monocytes % 7.7 % (1.7-12.7); NRBC # 0.03 10*3/uL; Neutrophils % 82.4 % (38.7-73.9); Platelet Count 258 T/CUMM (130-400); Red Blood Count 2.98 MC/CUMM (3.8-5.5); Red Cell Distribution Width 18.8 % (9.3-17.3); White Blood Count 11.6 T/CUMM (4-12)
[2019-11-13 06:17] LABS: Calcium 8.7 MG/DL (8.5-10.1); Osmolality,Calculated 302.9 MOS/KG (273-304)
[2019-11-13] MEDS: APIXABAN 5 MG TABLET PO SCH ×2 (09:47→21:06)
[2019-11-13] MEDS: cefTRIAXone 1,000 MG in SYRINGE 1 EACH IV SCH (09:48)
[2019-11-13] MEDS: MEMANTINE 10 MG TABLET PO SCH ×2 (09:48→21:02)
[2019-11-13] MEDS: PANTOPRAZOLE 40 MG VIAL IV SCH (09:48)
[2019-11-13] MEDS: QUEtiapine 25 MG TABLET PO SCH ×2 (13:40→21:06)
[2019-11-13] MEDS: SODIUM CHLORIDE 0.45% 1,000 ML IV SCH (13:52)
[2019-11-14] MEDS: ALBUTEROL/IPRATROPIUM 3 ML NEB RESP TX SCH ×4 (02:00→19:58)
[2019-11-14] MEDS: MORPHINE 4 MG/1 ML VIAL IV PRN ×2 (05:37→21:24)
[2019-11-14 06:41] LABS: Basophils % 0.1 % (0.0-0.8); Eosinophils # 0.4 10*3/uL (0.0-0.87); Eosinophils % 3.4 % (0.00-10.9); Hematocrit 31.6 VOL% (42.0-52.0); Hemoglobin 9.5 GM/DL (14.0-18.0); Immature Granulocytes % 0.8 %; Immature Granulocytes Absolute 0.08 #; Lymphocytes % 9.5 % (21.2-54.2); Mean Corpuscular HGB Conc 30.1 GM/DL (32-36); Mean Corpuscular Volume 105.3 FL (87-102); Mean Platelet Volume 10.4 FL (9.6-12.0); Monocytes % 6.5 % (1.7-12.7); Neutrophils % 79.7 % (38.7-73.9); Platelet Count 261 T/CUMM (130-400); Red Cell Distribution Width 18.5 % (9.3-17.3); White Blood Count 10.5 T/CUMM (4-12)
[2019-11-14 07:09] LABS: Calcium 8.4 MG/DL (8.5-10.1)
[2019-11-14] MEDS: CEFDINIR 300 MG CAPSULE PO SCH ×2 (08:55→20:32)
[2019-11-14] MEDS: QUEtiapine 25 MG TABLET PO SCH ×2 (08:55→20:32)
[2019-11-14] MEDS: MEMANTINE 10 MG TABLET PO SCH ×2 (08:56→20:33)
[2019-11-14] MEDS: APIXABAN 5 MG TABLET PO SCH (10:41)
[2019-11-14] MEDS: PANTOPRAZOLE 40 MG TABLET PO SCH (20:32)
[2019-11-15] MEDS: ALBUTEROL/IPRATROPIUM 3 ML NEB RESP TX SCH ×4 (00:39→19:44)
[2019-11-15 05:27] LABS: Basophils % 0.1 % (0.0-0.8); Eosinophils # 0.5 10*3/uL (0.0-0.87); Eosinophils % 3.5 % (0.00-10.9); Hematocrit 33.2 VOL% (42.0-52.0); Hemoglobin 9.9 GM/DL (14.0-18.0); Immature Granulocytes % 0.8 %; Immature Granulocytes Absolute 0.11 #; Lymphocytes # 1.1 10*3/uL (1.4-4.0); Lymphocytes % 7.8 % (21.2-54.2); Mean Corpuscular HGB Conc 29.8 GM/DL (32-36); Mean Corpuscular Volume 105.7 FL (87-102); Mean Platelet Volume 10.4 FL (9.6-12.0); Monocytes % 5.9 % (1.7-12.7); Neutrophils % 81.9 % (38.7-73.9); Platelet Count 264 T/CUMM (130-400); Red Blood Count 3.14 MC/CUMM (3.8-5.5); White Blood Count 13.8 T/CUMM (4-12)
[2019-11-15 05:50] LABS: Calcium 8.2 MG/DL (8.5-10.1); Osmolality,Calculated 296.1 MOS/KG (273-304)
[2019-11-15] MEDS: QUEtiapine 25 MG TABLET PO SCH ×2 (14:56→20:57)
[2019-11-15] MEDS: CEFDINIR 300 MG CAPSULE PO SCH ×3 (14:56→20:57)
[2019-11-15] MEDS: MEMANTINE 10 MG TABLET PO SCH ×2 (14:56→20:57)
[2019-11-15] MEDS: PANTOPRAZOLE 40 MG TABLET PO SCH (20:57)
[2019-11-15] MEDS: oxyCODONE/ACETAMINOPHEN 5-325 MG TABLET PO PRN (21:00)
[2019-11-16] MEDS: ALBUTEROL/IPRATROPIUM 3 ML NEB RESP TX SCH ×4 (00:37→20:43)
[2019-11-16] MEDS: QUEtiapine 25 MG TABLET PO SCH ×2 (08:33→22:14)
[2019-11-16] MEDS: CEFDINIR 300 MG CAPSULE PO SCH ×2 (08:33→22:15)
[2019-11-16] MEDS: MEMANTINE 10 MG TABLET PO SCH ×2 (08:33→22:15)
[2019-11-16] MEDS: PANTOPRAZOLE 40 MG TABLET PO SCH (22:14)
[2019-11-16] MEDS: oxyCODONE/ACETAMINOPHEN 5-325 MG TABLET PO PRN (22:14)
[2019-11-17] MEDS: ALBUTEROL/IPRATROPIUM 3 ML NEB RESP TX SCH ×4 (00:55→19:40)
[2019-11-17 06:17] LABS: Basophils % 0.1 % (0.0-0.8); Eosinophils # 0.4 10*3/uL (0.0-0.87); Eosinophils % 2.7 % (0.00-10.9); Hematocrit 32.3 VOL% (42.0-52.0); Immature Granulocytes % 0.8 %; Immature Granulocytes Absolute 0.11 #; Lymphocytes # 0.9 10*3/uL (1.4-4.0); Lymphocytes % 6.9 % (21.2-54.2); Mean Corpuscular Volume 102.5 FL (87-102); Mean Platelet Volume 10.5 FL (9.6-12.0); Monocytes % 6.2 % (1.7-12.7); Neutrophils % 83.3 % (38.7-73.9); Platelet Count 245 T/CUMM (130-400); Red Blood Count 3.15 MC/CUMM (3.8-5.5); Red Cell Distribution Width 16.9 % (9.3-17.3); White Blood Count 13.3 T/CUMM (4-12)
[2019-11-17 06:39] LABS: Calcium 8.3 MG/DL (8.5-10.1); Osmolality,Calculated 281.3 MOS/KG (273-304)
[2019-11-17] MEDS ORDERED: POTASSIUM CHLORIDE 20 MEQ TABLET PO PRN (07:15)
[2019-11-17] MEDS ORDERED: APIXABAN 5 MG TABLET PO SCH (09:00)
[2019-11-17] MEDS: POTASSIUM CHLORIDE 20 MEQ TABLET PO SCH ×2 (09:10→11:12)
[2019-11-17] MEDS: QUEtiapine 25 MG TABLET PO SCH ×2 (09:11→22:14)
[2019-11-17] MEDS: MEMANTINE 10 MG TABLET PO SCH ×2 (09:11→22:14)
[2019-11-17] MEDS: oxyCODONE/ACETAMINOPHEN 5-325 MG TABLET PO PRN ×2 (11:22→16:36)
[2019-11-17] MEDS: PANTOPRAZOLE 40 MG TABLET PO SCH (22:14)
[2019-11-18] MEDS: ALBUTEROL/IPRATROPIUM 3 ML NEB RESP TX SCH ×3 (00:43→13:07)
[2019-11-18 07:20] LABS: Calcium 8.2 MG/DL (8.5-10.1); Osmolality,Calculated 284.8 MOS/KG (273-304)
[2019-11-18] MEDS: QUEtiapine 25 MG TABLET PO SCH (11:46)
[2019-11-18] MEDS: MEMANTINE 10 MG TABLET PO SCH (11:46)
[2019-11-18 16:23] VITALS: BP 142/71
== END 2019-11-18 19:14 | disposition hospice, home (50) | DRG 252 ==
LOC: EDUNIT# → EDBD → N.ED 04:35 → SUATTDRO 07:47 → N.EDINP 07:47 → N.CC 09:29 → N.2E 11-12 12:31
PROVIDERS: ADMIT Internal Medicine; ATTEND Internal Medicine Nephrology